=== PATIENT | female | born 1980 | race Caucasian/White ===

== ENCOUNTER 2019-01-27 13:20 | Emergency (ER) | payer MEDICAID ==
[~2019-01-27] VITALS: Ht 149.9 cm; Wt 63.5 kg
[2019-01-27 13:29] VITALS: Ht 149.9 cm; Wt 63.5 kg
[2019-01-27 15:05] VITALS: BP 117/64
== END 2019-01-27 15:05 | disposition home or self-care (01) ==
LOC: ED 13:20
DX: N39.0 Urinary tract infection, site not specified (principal); N76.0 Acute vaginitis; Z11.3 Encounter for screening for infections with a predominantly sexual mode of transmission
CPT/HCPCS: 87491; 87591; J0696

== ENCOUNTER 2020-04-24 19:40 | Emergency (ER) | payer MEDICAID ==
[~2020-04-24] VITALS: Ht 149.9 cm; Wt 63.5 kg
[2020-04-24 20:07] VITALS: Ht 149.9 cm; Wt 63.5 kg
[2020-04-24 21:22] VITALS: BP 138/82
== END 2020-04-24 21:22 | disposition home or self-care (01) ==
LOC: ED 19:40
DX: M79.642 Pain in left hand (principal); M79.641 Pain in right hand; R20.2 Paresthesia of skin